=== PATIENT | female | born 1960 | race Caucasian/White ===

== ENCOUNTER 2016-09-08 06:01 | Inpatient (IN) | payer BC ==
--- NOTE | 2016-09-02 13:53 | Anesthesia Consultation ---
Anesthesia Consult and Med Hx Date of service: 09/02/16 - Airway Anesthetic Teeth Evaluation: Good ROM Head & Neck: Adequate Mental/Hyoid Distance: Adequate Mallampati Class: Class II Intubation Access Assessment: Probably Good - Pulmonary Exam CTA: Yes - Cardiac Exam Cardiac Exam: RRR - Pre-Operative Health Status ASA Pre-Surgery Classification: ASA2 Proposed Anesthetic Plan: General Nerve Block: TAP - Pulmonary Hx Smoking: No - Cardiovascular System Hx Hypertension: No - Central Nervous System Hx Psychiatric Problems: No - Endocrine Hx Non-Insulin Dependent Diabetes: No - Hematic Hx Anemia: Yes - Other Systems Hx Cancer: No
[2016-09-02 14:22] LABS: Basophils % (Auto) 0.6 % (0.0-1.8); Eosinophils % (Auto) 1.8 % (0.0-4.3); Hematocrit 42.3 % (30.3-42.9); Hemoglobin 14.1 gm/dl (10.1-14.3); Mean Corpuscular HGB Conc 33 % (30-34); Mean Corpuscular Hemoglobin 28 pg (28-32); Mean Corpuscular Volume 83 fl (79-97); Platelet Count 324 K/mm3 (140-440); Red Blood Count 5.12 M/mm3 (3.65-5.03); White Blood Count 9.8 K/mm3 (4.5-11.0)
[2016-09-02 14:36] LABS: BUN/Creatinine Ratio 26.66; Blood Urea Nitrogen 16 mg/dL (7-17); Calcium 8.9 mg/dL (8.4-10.2); Carbon Dioxide 24 mmol/L (22-30); Glucose 92 mg/dL (65-100)
[2016-09-02 14:37] LABS: Anion Gap 22 mmol/L; Chloride 98.7 mmol/L (98-107); Potassium 3.9 mmol/L (3.6-5.0); Sodium 141 mmol/L (137-145)
--- NOTE | 2016-09-07 20:39 | History and Physical Report ---
History of Present Illness Date of examination: 09/04/16 History of present illness: This is a 56 year old female who presents for hysterectomy with removal of bilateral fallopian tubes and ovaries. Her history is significant for severe anemia due to menometrorrhagia. Her evaluation revealed a normal endometrial biopsy and uterine size however large bilateral teratomas were confirmed by CT scan. Her anemia resolved with medical management. Ovarian tumor markers were normal and CT scan was negative for ascites, adenopathy or any obvious evidence for malignancy. After options and risks were discussed with her via her deli clerk she voiced understanding and desires to proceed with hysterectomy with bilateral salpingo-oophorectomy and other indicated procedures. 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 Risk Factors: Smoked Tobacco Use: Never smoker Drug use: no Alcohol use: no Seatbelt use: 100 % Other Exams Lungs: CTAB Heart: RRR Abdomen: soft, non-tender, no masses Skin: no ulcers, xanthomas Lymph: no cervical, axillary, or inguinal adenopathy Extremities: normal alignment, no joint enlargement, crepitus, masses or tenderness; normal tone and strength Genitourinary Exam Vulva: normal, no lesions or discharge Urethral meatus: normal size and location, no lesions or discharge Urethra: no discharge Bladder: no cystocele Vagina: normal appearance, no discharge, lesions. No evidence of cystocele or rectocele. Cervix: normal appearance, no lesions, no discharge Uterus: normal position, midline, mobile Adnexa: no masses or tenderness Medications and Allergies Allergies Allergy/AdvReac Type Severity Reaction Status Date / Time No Known Allergies Allergy Unverified 09/01/16 15:25 Home Medications Medication Instructions Recorded Confirmed Last Taken Type Ferrous Fumarate/Folic Acid 1 tab PO DAILY 09/01/16 09/01/16 Unknown History [Hematinic-Folic Acid Tablet] Tranexamic Acid [Tranexamic Acid] 650 mg PO PRN PRN 09/01/16 09/01/16 Unknown History Active Meds: Active Medications Celecoxib (Celebrex) 200 mg PO PREOP NR Stop: 09/08/16 23:01 Famotidine (Pepcid) 20 mg PO PREOP NR Stop: 09/08/16 23:00 Fentanyl (Sublimaze) 100 mcg IV ONCE EDGARD Stop: 09/08/16 23:00 Gabapentin (Neurontin) 300 mg PO PREOP NR Stop: 09/08/16 23:01 Sodium Chloride (Nacl 0.9% 1000 Ml) 1,000 mls @ 100 mls/hr IV DIRECT EDGARD Cefazolin Sodium (Ancef/Sterile Water 2 Gm/20 Ml) 20 mls @ 80 mls/hr IV PREOP NR PRN Reason: Protocol Midazolam HCl (Versed) 2 mg IV PREOP NR Stop: 09/08/16 23:01 Review of Systems All systems: negative Exam Vital Signs Temp Pulse Resp BP 97.4 F L 80 14 128/80 09/02/16 13:30 09/02/16 13:30 09/02/16 13:30 09/02/16 13:30 - Respiratory Positive: normal respiratory effort, clear to auscultation - Cardiovascular Rhythm: regular Results - Labs 09/02/16 13:35 09/02/16 13:35 Assessment and Plan - Patient Problems (1) Teratoma of ovary Status: Acute Plan to address problem: Her split and drum room supervisor was used throughout this patient's preoperative visit The risks and alternatives for this surgery were reviewed with the patient. Discussed the possible complications of the procedure, including, but not limited to, infection, bleeding possibly heavy enough to require a blood transfusion, possible damage to bowel, bladder or ureters. She was informed she will not be able to get after her uterus has been removed and after her ovaries are removed she will become menopausal. Indications, benefits and risks of hormone replacement therapy were discussed. Also she was informed the procedures may need to be performed through a large incision on her abdomen if it is unable to performed laparoscopically and she will have to remain in the hospital longer. The patient was instructed/informed the following: The normal length of hospital stay for this procedure. Nothing to eat or drink after midnight the evening prior to surgery. Clear liquids the day before surgery. Pre-op instruction sheets given. Fleets enema the day prior to surgery. Wound care instructions given. Her questions were answered. Patient voiced understanding and desires to proceed with hysterectomy with removal of bilateral fallopian tubes and ovaries. The consent reviewed and signed. (2) Menometrorrhagia Status: Acute
[~2016-09-08 06:01] MED LIST: ANCEF/STERILE WATER 2 GM/20 ML 20 ML IV NR; NACL 0.9% 1000 ML 1,000 ML IV SCH; NEURONTIN PO NR; PEPCID PO NR; SUBLIMAZE IV SCH
[2016-09-08] MEDS ORDERED: NACL BACTERIOSTATIC INFILTRATI ONE (06:31)
[2016-09-08] MEDS ORDERED: MARCAINE-EPI 0.5%-1:200,000 INFILTRATI ONE (06:44)
[2016-09-08] MEDS ORDERED: MARCAINE-EPI/PF 0.5%-1:200,000 INFILTRATI ONE (06:44)
[2016-09-08] MEDS ORDERED: XYLOCAINE 1% 20 mL ONE (06:45)
[2016-09-08] MEDS ORDERED: VERSED IV NR (07:00)
[2016-09-08] MEDS ORDERED: ZEMURON IV ONE (07:21)
[2016-09-08] MEDS ORDERED: DIPRIVAN 10 MG/ML IV ONE (07:21)
[2016-09-08] MEDS ORDERED: XYLOCAINE MPF 2% ONE (07:21)
[2016-09-08] MEDS ORDERED: DILAUDID ONE (07:21)
--- NOTE | 2016-09-08 07:37 | Admit Criteria Form ---
Admission Criteria Documentation: AMBULATORY SURGERY EXCEPTION CRITERIA Ambulatory Surgery Exception Criteria ( Place 'X' for any and all applicable criteria): Surgery or procedure performed on ambulatory basis may require inpatient stay for[A] ANY ONE of the following(1)(2)(3)(4)(5)(6)(7)(8)(9): [X] I. A preoperative situation, condition, or finding that warrants inpatient stay as indicated by ANY ONE of the following: [] a) Inpatient care needed because of severity of a disease or condition rather than the surgery (eg, severe cardiac or respiratory disease, severe infection) (15) (16 ) (17) (18) [] b) Emergent procedure (eg, angioplasty for acute ischemia)(19) [X] c) Complex surgical approach or situation as indicated by ANY ONE of the following(3): [] i) Open approach needed instead of usual endoscopic, transcatheter, or other less invasive procedure [] ii) Difficult approach because of previous operation [] iii) Airway monitoring required after open neck procedures(20)(21) [X] iv) Large mass requiring unusually extensive dissection [] v) Additional complicating feature requiring inpatient care (eg, drain management)(22(23): [] d) Major surgery in a pt with high anesthetic risk as indicated by ANY ONE of the following (2)(3)(5)(7)(8): [] i) ASA risk class III or higher (severe systemic disease impairing function) [D] [] ii) Advanced age (eg, older than 85 years)(14)(24) [] iii) Symptomatic heart failure(25) [] iv) Symptomatic asthma or COPD(8)(21) [] v) Morbid obesity with hemodynamic or respiratory problems(20)( 21)(26)(27) [] vi) Obstructive sleep apnea(20)(21) [] vii) Former premature infants who are younger than 60 weeks [] viii) High risk for severe postoperative abnormalities (eg, severe postoperative hypocalcemia after parathyroidectomy for severe hyperparathyroidism)(27)( 28) [] ix) Unstable angina(25) [] e) Drug-related risk requiring inpatient stay as indicated by ANY ONE of the following(5)(10)(14)(32)(33) [] i) Procedure requires discontinuing drugs or other therapy (eg , antiarrhythmic medication, antiseizure medication), which necessitates inpatient observation or treatment.(18)(31) [] ii) Major surgery and high risk drug use as indicated by ANY ONE of the following: [] 1) Active abuse of cocaine or similar drug [] 2) Monoamine oxidase inhibitor use [] 3) Other drug identified as posing risk [] f) Inadequate outpatient care situation as indicated by ANY ONE of the following(5)(10)(14)(32)(33) [] i) Patient lives remote from medical facility and procedure has urgent complication potential, and temporary nearby residence cannot be arranged [] ii) Patient will have postprocedure incapacitation and inadequate assistance at home, or alternative level of care cannot be arranged. [] iii) Patient will have long general anesthesia or procedure side effect resolution time, and competent person to stay with patient on first postoperative night at home or alternative level of care cannot be arranged. []iv) Other inadequate outpatient situation that cannot be handled by other means [] II. A perioperative event, condition, or finding that warrants inpatient stay as indicated by ANY ONE of the following (1)(2)(3): [] a) Inadequate physiologic recovery: cardiovascular, respiratory, or hemodynamic status not normal or near preoperative baseline(18) [] b) Hemodynamic instability [] c) Patient not alert with near normal or baseline mental status [] d) Temperature not normal or as expected and not appropriate for outpatient treatment of condition [] e) Ambulatory or appropriate activity level status not yet achieved post procedure [E](34)(35)(36) [] f) Operative site not appropriate (eg, unexpected or excessive drainage or bleeding) [] g) Postoperative effects not resolved or adequately managed (eg, significant pain or vomiting not appropriate for outpatient or next level of care)(10)(12) [] h) Complicating features requiring inpatient care as indicated by ANY ONE of the following(37): [] i) Severe complications of procedure (eg, bowel injury, airway compromise, vascular injury,severe hemorrhage) [] ii) Extensive (eg, dissection far beyond usual scope of procedure ) or prolonged (eg, 120 minutes beyond usual) surgery needed requiring inpatient postoperative care [] iii) Conversion to an open or complex procedure that requires inpatient care (eg, open vs laparoscopic cholecystectomy, abdominal vs vaginal hysterectomy)(38) [] iv) Comorbid condition or test result identified during or post procedure that requires inpatient care (7) [] v) Malignant hyperthermia(30) [] vi) Other complicating feature requiring inpatient care(22)(23) Inpatient stay may be needed until ALL of the following are present (1)(2)(3)(4) (5)(6)(10)(14)(33)(40): []a) Physiologic recovery: cardiovascular, respiratory, and hemodynamic status normal or near preoperative baseline []b) Hemodynamic stability []c) Patient alert, with near normal or baseline mental status []d) Temperature appropriate: patient afebrile or temperature appropriate for outpt treatment of condition []e) Activity level appropriate: ambulatory or appropriate activity level post procedure []f) Operative site appropriate as indicated by ALL of the following: []i) Site dry or with expected drainage []ii) Any blood noted is as expected for procedure. []g) Postoperative effects resolved or managed as indicated by ALL of the following: []i) Pain management appropriate for outpatient (or next level of) care(10) []ii) Minimal nausea and vomiting: if present, successfully treated with oral medication(12) []iii) Headache, dizziness, or drowsiness (if present) are mild. []h) Voiding status acceptable as indicated by ANY ONE of the following: []i) Voiding spontaneously []ii) No voiding but instructions given for follow-up in 6 to 8 hours []iii) Urinary catheter in place, and instructions given for follow-up []i) Complicating features requiring inpatient care manageable at a lower level of care(37) []j) Comorbid conditions manageable at a lower level of care(37) The original [facility] content created by [facility] has been revised. The portions of the content which have been revised are identified through the use of italic text or in bold, and [facility] [employer] has neither reviewed nor approved the modified material. All other unmodified content is copyright [facility]. Please see references footnoted in the original [facility] edition 2016 Admission Criteria Met: Yes
--- NOTE | 2016-09-08 07:40 | Anesthesia Day of Surgery ---
Anesthesia Day of Surgery - Day of Surgery Patient Examined: Yes Patient H&P Reviewed: Yes Patient is NPO: Yes
[2016-09-08] MEDS ORDERED: NACL 0.9% 1000 ML 1,000 ML ONE (08:51)
[2016-09-08] MEDS ORDERED: ZOFRAN ONE (08:54)
[2016-09-08] MEDS ORDERED: ROBINUL ONE (08:54)
[2016-09-08] MEDS ORDERED: BLOXIVERZ ONE (08:54)
[2016-09-08] MEDS ORDERED: TORADOL ONE (09:46)
[2016-09-08] MEDS ORDERED: DILAUDID IV PRN (10:24)
[2016-09-08] MEDS ORDERED: NEOSPORIN GU IR ONE (10:25)
[2016-09-08] MEDS ORDERED: NACL 0.9% IR ONE (10:25)
[2016-09-08] MEDS ORDERED: WATER FOR IRRIG STERILE IR ONE (10:25)
[2016-09-08 10:39] LABS: Mucus,Urine FEW /HPF
[2016-09-08 10:43] LABS: Bilirubin,Urine NEG (Negative); Blood,Urine MOD (Negative); Ketones,Urine 20 mg/dL (Negative); Leukocyte Esterase,Urine NEG (Negative); Nitrite,Urine NEG (Negative); Urobilinogen,Urine < 2.0 mg/dL (<2.0)
--- NOTE | 2016-09-08 11:15 | Operative Report ---
Operative Report Operative Report: Date of procedure: 09/08/2016 Pre-operative diagnosis: 1. Menometrorrhagia 2. Bilateral ovarian masses consistent with teratomas the CT scan Post-operative diagnosis: 1. Menometrorrhagia 2. Bilateral ovarian masses consistent with teratomas the CT scan Procedure name(s): 1. Robotic-assisted total hysterectomy 2. Buttock-assisted bilateral salpingo-oophorectomy Surgeon: Jacqueline Peck MD Neighborhood Worker: Agustina Veronica Anesthesia: General anesthesia Findings: Exam under anesthesia was unremarkable. Uterus was sounded to 8 cm. Grossly normal uterus and cervix. Cyst on the right ovary. Approximately 7 cm enlarged left ovary. Grossly normal fallopian tubes bilaterally. The grossly normal appendix. Anesthesiologist: Kelvin Nassar M.D. Complications: None EBL: 50 mL Procedure: After risks, benefits complications, consequences, and alternatives for this procedure were discussed the patient, and she voiced understanding and desired to proceed, she was taken to the OR where general anesthesia was induced. She was placed in the dorsolithotomy position, exam under anesthesia was unremarkable. She was then prepped and draped in usual sterile fashion. Mcgowan catheter was introduced into the bladder with drainage of cloudy concentrated urine. A bivalve speculum was introduced into the vagina , and the anterior lip of the cervix was grasped with a single-tooth tenaculum. The uterus was sounded to approximately 8 cm. The cervix was progressively dilated to allow the large the V care uterine manipulator. The tenaculum and speculum were removed and the Vcare manipulator was secured in place. A solution saturated laparotomy sponge was placed in the vagina. Sterile gloves were placed and attention was turned to the abdomen. A 12 mm Optiview trocar with scope and camera attached was placed through a midline vertical incision approximately 10 cm superior to the elevated fundus of the uterus. The trocar with camera attached was placed under direct visualization. No bowel, bladder, ureteral or major blood vessel injury was noted. The abdomen was insufflated. Patient was placed in steep Trendelenburg position. Additional trocars were placed in the following positions: 8 mm robotic trocars were placed in the bilateral midclavicular lower abdominal region approximately 10 cm lateral to the midline incision. An additional 12 mm trocar was placed in the right lateral lower abdominal region approximately 2 cm superior to the anterior superior iliac crest. A 0 Vicryl was placed in the fascia of both 12 mm trochars under direct visualization using the Brian-Vicki fascia closure device in the usual fashion. The trochars were then reintroduced. The suture was secured in place with hemostats. Once the trocars were in the proper position the robot was engaged. The instruments were introduced into the 8 mm trochars. Attention was turned to console. The uterus was elevated, the utero- ovarian ligaments were clamped, cauterized and incised bilaterally using 30 W of energy. Then the round ligaments were clamped, cauterized and incised bilaterally. The anterior leaf of the broad ligament was elevated with both blunt and sharp dissection the bladder flap was created. Once the bladder appeared to be away from the operative field attention was turned the posterior leaf of the broad ligaments. The ligaments were elevated and dissected away from the uterine vessels. Once the outline of the Vcare uterine manipulator was visualized, the uterine vessels were clamped and cauterized bilaterally. Once blanching of the uterus was noted, and the posterior outline of the Vcare manipulator was visualized, and confirmed, colpotomy was performed down to the cup of the manipulator. This incision was extended in a circumferential manner to 9:00 and 3:00 positions. The uterine vessels were clamped, cauterized and incised. The colpotomy was completed. The uterus was then delivered through the vagina. Attention was turned to the adnexa. The fallopian tube was grasped and elevated. The course of the ureter was noted. And the infundibulopelvic ligament was clamped cauterized and incised. The right ovary was released and removed through the vagina. The left fallopian tube was elevated. The ovary was also elevated from the posterior cul-de-sac. The course of the ureter was noted. Infundibulopelvic ligament was clamped, cauterized and incised. An Endo Catch bag was introduced through the lateral trocar. The ovary was placed into the Endo Catch bag. Attention was turned to the vagina to remove the ovary. When attempting to remove the Endo Catch bag with the ovary inside the bag broke. However the ovary remained intact. The large Endo Catch bag with in the 15 mm introducer was placed in the vagina into the pelvis. Ovary was then placed in the bag. The back was then delivered into the vagina. The ovary with in the bag was grasped and decompressed and partially morcellated inside the intact bag that was in the vagina. Yellow thick fluid draining from the decompressed ovary and hair was noted also within the ovary. The intact bag with the ovary was removed through the vagina. A new moist laparotomy sponges placed in the vagina. Attention was turned back to the console. The pelvis was irrigated with solution warm saline. Hemostasis was noted the vagina was reapproximated using the V LOC 180 suture in 2 layers. The pelvis was again irrigated with warm normal saline. Once hemostasis was noted, Leon was applied for further hemostasis. The ureters were noted to be peristaltic and away from the operative field. The abdomen and pelvis were again visualized, no bowel, bladder, ureteral or major vascular injury was noted, hemostasis was also noted. The trocars were removed. The fascial incisions was then ligated with patient in Trendelenburg position. The skin incisions were approximated using 4-0 Vicryl in a subcuticular manner. The incisions were then sealed with Octylseal.The laparotomy sponge was removed from the vagina, and hemostasis was noted. A small perineal laceration was noted that was reapproximated using 3-0 Vicryl in the usual fashion. The patient tolerated the procedure well and was taken to recovery room in stable condition. Counts were correct x3. Concentrated, cloudly yellow urine was noted draining into the Mcgowan catheter was noted. No lobe was noted in the Mcgowan catheter procedure.
[2016-09-08] MEDS ORDERED: TORADOL IV SCH (12:05)
[2016-09-08] MEDS ORDERED: REGLAN PO PRN (12:05)
[2016-09-08] MEDS ORDERED: MORPHINE IV PRN ×2 (12:05→12:30)
[2016-09-08] MEDS ORDERED: REGLAN IV PRN (12:05)
[2016-09-08] MEDS ORDERED: PROTONIX IV SCH (12:05)
[2016-09-08] MEDS ORDERED: NARCAN 0.4 MG/1 ML IV PRN (12:05)
[2016-09-08] MEDS ORDERED: ZOFRAN IV PRN (12:05)
[2016-09-08] MEDS ORDERED: ZOFRAN PO PRN (12:05)
[2016-09-08] MEDS ORDERED: TYLENOL PR PRN (12:05)
[2016-09-08] MEDS ORDERED: TYLENOL PO PRN (12:05)
[2016-09-08] MEDS: NACL 0.9% 1000 ML 1,000 ML IV SCH ×2 (12:20→21:19)
[2016-09-08] MEDS: ANCEF/NS 1 GM/50 ML 50 ML IV SCH ×2 (12:32→21:40)
[2016-09-08] MEDS ORDERED: NACL 0.9% 1000 ML 1,000 ML IV SCH (13:00)
[2016-09-08] MEDS: TORADOL IV SCH ×2 (15:51→22:05)
--- NOTE | 2016-09-08 17:07 | Event Note ---
Date: 09/08/16 Patient resting in bed, alert and appropriately responsive. Her network relay tester, Rachna, present at bedside. Findings and procedures explained. Questions answered. VSS UO good and clear. Plan of care explained. She voiced understanding
[2016-09-09] MEDS: PERCOCET 5/325 PO PRN ×2 (04:59→12:25)
[2016-09-09] MEDS: TORADOL IV SCH ×2 (05:02→10:00)
[2016-09-09 06:30] LABS: Basophils % (Auto) 0.3 % (0.0-1.8); Eosinophils % (Auto) 0.4 % (0.0-4.3); Hematocrit 34.4 % (30.3-42.9); Hemoglobin 11.2 gm/dl (10.1-14.3); Mean Corpuscular HGB Conc 33 % (30-34); Mean Corpuscular Hemoglobin 27 pg (28-32); Mean Corpuscular Volume 83 fl (79-97); Platelet Count 239 K/mm3 (140-440); Red Blood Count 4.15 M/mm3 (3.65-5.03)
[2016-09-09 08:05] VITALS: BP 119/71
--- NOTE | 2016-09-09 08:56 | Progress Note ---
Assessment and Plan Will allow home - Patient Problems (1) History of robot-assisted laparoscopic hysterectomy Current Visit: Yes Status: Acute (2) S/P bilateral salpingo-oophorectomy Current Visit: Yes Status: Acute Subjective - Subjective Date of service: 09/09/16 Principal diagnosis: s/p RATH/BSO Interval history: Patient resting in bed. Her test cell technician, Rachna, was on the patient's cell phone while I spoke with her. States no complaints. No bleeding Objective - Vital Signs Latest vital signs: Vital Signs Temp Pulse Pulse Pulse Pulse Resp BP 09/09/16 08:00 98.2 F 80 18 09/09/16 04:00 99.3 F 80 18 09/09/16 00:03 99.3 F 81 18 09/08/16 20:03 98.9 F 80 18 09/08/16 16:00 98 F 88 18 09/08/16 11:40 97.5 F L 80 16 09/08/16 11:30 97.5 F L 80 16 126/79 09/08/16 11:15 82 19 123/79 09/08/16 11:00 78 16 123/76 09/08/16 10:45 82 18 121/68 09/08/16 10:40 80 16 09/08/16 10:35 88 17 118/73 09/08/16 10:30 88 16 110/64 09/08/16 10:25 97.4 F L 89 17 120/69 BP Pulse Ox 09/09/16 08:00 119/71 09/09/16 04:00 113/63 09/09/16 00:03 94/56 09/08/16 20:03 121/69 09/08/16 16:00 114/58 09/08/16 11:40 126/79 09/08/16 11:30 09/08/16 11:15 99 09/08/16 11:00 100 09/08/16 10:45 100 09/08/16 10:40 09/08/16 10:35 100 09/08/16 10:30 100 09/08/16 10:25 100 Intake and Output 09/08/16 09/09/16 09/09/16 22:59 06:59 14:59 Intake Total 740 750 Output Total 600 1800 Balance 140 -1050 Intake: IV 500 750 NaCl 0.9% 1000 ml 1,000 500 750 ml @ 125 mls/hr IV DIRECT [facility] Rx#:[id number] Oral 240 Output: Urine 600 1800 Void 600 1800 Other: Total, Intake Amount 120 Total, Output Amount 600 1800 Voiding Method Indwelling Catheter - Exam Breasts: Present: deferred Cardiovascular: Present: Regular rate Lungs: Present: Clear to auscultation, Normal air movement Abdomen: Present: normal appearance, soft, normal bowel sounds Extremities: Present: normal. Absent: tenderness, edema Incision: Present: normal, dry, intact - Labs Labs: Abnormal lab results 09/09/16 Range/Units 06:03 MCH 27 L (28-32) pg Marshall % (Auto) 7.8 H (0.0-7.3) % Seg Neutrophils % 71.0 H (40.0-70.0) %
--- NOTE | 2016-09-09 09:03 | Discharge Summary ---
Providers - Providers Date of Admission: 09/08/16 10:46 Date of discharge: 09/09/16 Attending physician: ALLISON ALMARAZ Primary care physician: LEYDA WINTERS Hospitalization Reason for admission: s/p RATH/BSO Condition: Good Procedures: s/p RATH/BSO Hospital course: Through the patient's wood club neck whipper by cell phone patient was without complaints and desires DC home. Her hospital course was uncomplicated. Disposition: DISCHARGED TO HOME OR SELFCARE - Discharge Diagnoses (1) History of robot-assisted laparoscopic hysterectomy Status: Acute (2) S/P bilateral salpingo-oophorectomy Status: Acute Core Measure Documentation - Palliative Care Palliative Care/ Comfort Measures: Not Applicable - Core Measures Any of the following diagnoses?: none Exam - Constitutional Vitals: Temp Pulse Resp BP Pulse Ox 98.2 F 80 18 119/71 99 09/09/16 08:00 09/09/16 08:00 09/09/16 08:00 09/09/16 08:00 09/08/16 11:15 General appearance: Present: no acute distress - Respiratory Respiratory effort: normal Respiratory: negative: CTA - Cardiovascular Rhythm: regular - Extremities Extremities: no ischemia, No edema - Abdominal General gastrointestinal: Present: soft, non-tender, normal bowel sounds Female genitourinary: Present: deferred - Integumentary Integumentary: Present: clear, warm, dry Plan Activity: other (no driving, no sex, stay on your property, drink 64 ounces of water every day. Void frequently and keep her bladder empty to avoid putting pressure on the bladder.) Weight Bearing Status: Non-Weight Bearing Diet: regular (Eat several small meals frequently in the day.) Wound: open to air, keep clean and dry (clean incisions with water frequently throughout the day) Special Instructions: no heavy lifting (no lifting greater than 15 pounds. Ambulate on your property approximately 1 mile a day. Do not exercise.) Additional Instructions: Call the office for any problems or concerns. Follow up with: LEYDA WINTERS MD [Primary Care Provider] - 7 Days ALLISON ALMARAZ MD [Staff Physician] - 7 Days Prescriptions: RX: Ibuprofen [Motrin 800 MG tab] 800 mg PO TID PRN #30 tablet PRN Reason: Pain RX: oxyCODONE /ACETAMINOPHEN [Percocet 5/325 mg] 1 - 2 tab PO Q4HR PRN #30 tablet PRN Reason: Pain
--- NOTE | 2016-09-09 10:02 | Progress Note ---
Subjective Date of service: 09/09/16 Principal diagnosis: s/p RATH/BSO Interval history: 1st POD after robotic hysterectomy Patient is comfortable. Pain is mostly controlled with pain meds. No nausea or vomiting. Being discharged by the surgeon Objective - Constitutional Vitals: Vital Signs - 12hr 09/09/16 09/09/16 09/09/16 00:03 04:00 08:00 Temperature 99.3 F 99.3 F 98.2 F Pulse Rate [ 81 80 80 From Monitor] Respiratory 18 18 18 Rate Blood Pressure 94/56 113/63 119/71 [Right Arm] - Labs CBC & Chem 7: 09/09/16 06:03 09/02/16 13:35 Labs: Abnormal lab results 09/09/16 Range/Units 06:03 MCH 27 L (28-32) pg Chaves % (Auto) 7.8 H (0.0-7.3) % Seg Neutrophils % 71.0 H (40.0-70.0) %
[2016-09-09] MEDS ORDERED: TORADOL IV PRN (12:00)
== END 2016-09-09 15:00 | disposition home or self-care (01) | DRG 743 ==
LOC: OR 06:01 → OB 10:46 → OBSVTOIN 09-09 09:19
PROVIDERS: ADMIT Obstetrics & Gynecology; ATTEND Obstetrics & Gynecology
PROC: 0UT90ZZ Resection of Uterus, Open Approach (ICD-10-PCS; principal; 2016-09-08)
PROC: 0UTC0ZZ Resection of Cervix, Open Approach (ICD-10-PCS; 2016-09-08)
PROC: 0UT70ZZ Resection of Bilateral Fallopian Tubes, Open Approach (ICD-10-PCS; 2016-09-08)
PROC: 0UT20ZZ Resection of Bilateral Ovaries, Open Approach (ICD-10-PCS; 2016-09-08)
DX: D27.0 Benign neoplasm of right ovary (principal); N92.1 Excessive and frequent menstruation with irregular cycle; D27.1 Benign neoplasm of left ovary
CPT/HCPCS: 36415; 64450; 80048; 81001; 81025; 85025; 86850; 86900; 86901; 87086; 88305; 88307; A4217; C9113; G0378; J0690; J1170; J1885; J2250; J2270; J2405; J2704; J2710; J3010; J7030

== ENCOUNTER 2017-01-26 14:45 | Outpatient (CLI) | payer BC ==
--- NOTE | 2017-01-27 14:28 | Mammography Report ---
Bilateral digital diagnostic mammogram with CAD and bilateral whole breast ultrasound including all 4 quadrants and subareolar regions. History: Bilateral mastodynia. Comparison is made to the previous study on May 14, 2016. Findings: The breast parenchyma is heterogeneously dense, and the overall pattern is stable. There scattered monomorphic round microcalcifications bilaterally, more pronounced on the right, but no suspicious like opacifications are seen. Sonographic evaluation of each breast was performed. On the left, there is a 5 x 7 mm hypoechoic lesion at the 6:00 position, 2.5 cm from the nipple. The margins are fairly well-circumscribed and there is no acoustic shadowing. At 12:00 position, there is a 9 x 4 x 6 mm complex lesion with circumscribed margins. There is no acoustic shadowing. The 5:00 position, there is a small cyst measuring 5 mm in diameter. In the right breast, at 12:00, there is an ovoid shaped hypoechoic lesion measuring 1.1 x 0.6 cm. The margins are fairly well circumscribed, and there is no acoustic shadowing. At the 6:00 position, there is a 7 x 11 mm complex lesion with circumscribed margins and no acoustic shadowing. At the o'clock position, there is a 6 mm complex lesion with no acoustic shadowing. The margins are well-defined. At the 10:00 position, there is a 6 mm in diameter complex lesion with similar features and no acoustic shadowing. Impression: Heterogeneously dense breasts with multiple bilateral complex and cystic lesions as detailed above. None of the lesions has suspicious sonographic features BI-RADS code: 3. Recommendation: Repeat bilateral whole breast ultrasound in 6 months to assess stability of these lesions.
== END 2017-01-26 14:46 | disposition home or self-care (01) ==
LOC: MAMMO 14:45
PROVIDERS: ATTEND Obstetrics & Gynecology
DX: N60.02 Solitary cyst of left breast (principal); N64.4 Mastodynia; R92.0 Mammographic microcalcification found on diagnostic imaging of breast; N64.89 Other specified disorders of breast; D50.0 Iron deficiency anemia secondary to blood loss (chronic)
CPT/HCPCS: 76641; G0204; 77066

== ENCOUNTER 2017-05-04 09:00 | Outpatient (CLI) | payer BC ==
--- NOTE | 2017-05-04 10:15 | Ultrasound Report ---
BILATERAL BREAST ULTRASOUND: 05/04/17 09:00:00 CLINICAL: Bilateral mastodynia. Followup cysts. COMPARISON: 01/26/17 FINDINGS: Ultrasound of both breasts (including all four quadrants and the retroareolar area) was performed and demonstrated several benign cysts. No solid mass or suspicious shadowing. A right cyst at 8 o'clock 2 cm from the nipple measures 6 x 6 x 5 mm. It has become anechoic and has not changed in size compared to the previous exam. An irregular cyst at 10 o'clock 7 cm from the nipple measures 9 x 4 x 6 mm. It has partially collapsed and has fewer internal echoes. Size is unchanged. A subareolar cyst in the left breast at 12 o'clock measures 8 x 4 x 6 mm. It is smaller and has become nearly completely anechoic. A cyst at 2 o'clock 2 cm from nipple is unchanged in size and measures 1.0 x 0.9 x 0.5 cm. It has also become anechoic. A cyst at 6 o'clock 2 cm from the nipple measures 7 x 3 x 6 mm and has become completely anechoic. No solid mass. IMPRESSION: Bilateral benign cysts. BI-RADS 2 - - Benign RECOMMENDATION: Routine mammographic screening.
== END 2017-05-04 09:01 | disposition home or self-care (01) ==
LOC: SPVWC 09:00
PROVIDERS: ATTEND Surgery
DX: N60.01 Solitary cyst of right breast (principal); N60.02 Solitary cyst of left breast

== ENCOUNTER 2019-05-09 08:32 | Outpatient (CLI) | payer BC ==
--- NOTE | 2019-05-09 09:14 | Mammography Report ---
DIGITAL SCREENING MAMMOGRAM WITH TOMOSYNTHESIS WITH CAD, 05/09/2019 INDICATION: Routine Screening Mammography. TECHNIQUE: Digital bilateral 2D and 3D mammography with tomosynthesis was obtained in the craniocau hernandez and mediolateral oblique projections. Computer-Aided Detection (CAD) analysis was used for inter pretation of this study. COMPARISON: 05/03/2018 FINDINGS: Breast Density: The breasts are heterogeneously dense, which may obscure small masses. There is no evidence of dominant mass, suspicious calcifications or architectural distortion in eithe r breast. IMPRESSION: No mammographic evidence of malignancy. Follow up recommendation: Routine yearly BI-RADS Category 1: Negative. A "normal" or negative report should not discourage follow up or biopsy of a clinically significant f inding. A written summary of these findings will be mailed to the patient. The patient will be entered into a mammography reporting system which will generate a reminder letter for the patient's next appointmen t at the appropriate interval. The [employer] recommends yearly mammograms starting at age 40 and continuing as l chema as a woman is in good health. Breast MRI is recommended for women with an approximate 20-25% or greater lifetime risk of breast cancer, including women with a strong family history of breast or ova rolando cancer or who have been treated for Hodgkin's disease. Signer Name: Grayson Arteaga MD Signed: 05/09/2019 9:09 AM Workstation Name: [id number]
== END 2019-05-09 08:33 | disposition home or self-care (01) ==
LOC: SPVWC 08:32
PROVIDERS: ATTEND Surgery
DX: Z12.31 Encounter for screening mammogram for malignant neoplasm of breast (principal)
CPT/HCPCS: 77067